=== PATIENT | female | born 1935 | race Caucasian/White ===

== ENCOUNTER 2016-09-19 07:52 | Emergency (ER) | payer MEDICARE, OTHER ==
[2016-09-19] MEDS ORDERED: Acetaminophen/HYDROcodone 325-5 MG Tab PO ONE (08:27)
--- NOTE | 2016-09-19 09:19 | EDM.PDOC ---
ED HPI LOWER BACK PAIN/INJURY - General Chief Complaint: Back Pain or Injury Stated Complaint: BACK PAIN Time Seen by Provider: 09/19/16 08:20 Source of Information: Reports: Patient, RN notes reviewed - History of Present Illness INITIAL COMMENTS - FREE TEXT/NARRATIVE: 81-year-old lady comes in with low back pain. She fell about 5 days ago falling backwards landing on her "butt" she does have moderate discomfort since the fall but no yesterday and especially this morning the pain has been much more severe primarily in the low back. The pain is worse with motion. It does not radiate down either leg. no chest or abdominal pain. No voiding symptoms. No fever or chills - Related Data Allergies/ADRs: Allergies Allergy/AdvReac Type Severity Reaction Status Date / Time bandaids Allergy Rash Uncoded 09/19/16 08:18 metal Allergy Rash Uncoded 09/19/16 08:18 Home Meds: Home Meds Allopurinol [Zyloprim] 100 mg PO DAILY 08/15/13 [History] Amitriptyline [Elavil] 10 mg PO DAILY 08/15/13 [History] Aspirin [Halfprin] 81 mg PO DAILY 08/15/13 [History] Cholecalciferol (Vitamin D3) [Vitamin D3] 1,000 unit PO DAILY 08/15/13 [History] Fish Oil/[place]-3 Fatty Acids [Fish Oil 1,000 MG] 1,000 mg PO DAILY 08/15/13 [ History] Furosemide 80 mg PO SUMOWEFR 08/15/13 [History] Multivitamin [Multivitamins] 1 cap PO DAILY 08/15/13 [History] Niacin 250 mg PO DAILY 08/15/13 [History] Nitroglycerin [Nitrostat] 0.4 mg SL ASDIRECTED PRN 08/15/13 [History] Pravastatin [Pravachol] 40 mg PO DAILY 08/15/13 [History] Atenolol 50 mg PO BID 11/05/14 [History] Gabapentin [Neurontin] 400 mg PO BID 11/05/14 [History] Glimepiride [Amaryl] 8 mg PO DAILY 11/05/14 [History] Quinapril [Accupril] 40 mg PO BID 07/02/15 [History] Acetaminophen [Tylenol Extra Strength] 650 mg PO DAILY PRN 09/02/16 [History] DULoxetine [Cymbalta] 30 mg PO DAILY 09/02/16 [History] Diltiazem HCl [Cardizem] 240 mg PO DAILY 09/02/16 [History] Warfarin Sodium [Coumadin] 3 mg PO 09/02/16 [History] hydrALAZINE [Apresoline] 50 mg PO BID 09/02/16 [History] Hydrocodone/Acetaminophen [[place] 5-325 Tablet] 1 each PO Q8HR PRN #20 tablet 10/31 [Rx] Past Medical History HEENT History: Reports: Cataract, Impaired vision Cardiovascular History: Reports: CAD, Heart Failure, High cholesterol, Hypertension, [place], Stents Respiratory History: Reports: PE Gastrointestinal History: Reports: GERD Genitourinary History: Reports: Chronic renal insuffiency Other Genitourinary History: cystoscopy, fistula placed, boderline renal failure. [employer] History: Reports: Other OB/BYN History: uterine cancer Musculoskeletal History: Reports: Arthritis, Back pain, chronic, Gout, Other ( see below) Other Musculoskeletal History: sciatic nerve Psychiatric History: Reports: Anxiety, Depression Endocrine/Metabolic History: Reports: Diabetes, type II Hematologic History: Reports: Anemia Oncologic (Cancer) History: Reports: Uterine - Past Surgical History HEENT Surgical History: Reports: Cataract surgery Cardiovascular Surgical History: Reports: Coronary artery stent GI Surgical History: Reports: Cholecystectomy, Colonoscopy Female Surgical History: Reports: Hysterectomy, Salpingo-oophorectomy Social & Family History - Family History Cardiac: Reports: [place] - Tobacco Use Smoking Status *Q: Current Every Day Smoker Years of Tobacco use: 10 Packs/Tins Daily: 0.5 Month Tobacco Last Used: 30 years Second Hand Smoke Exposure: No - Caffeine Use Caffeine Use: Reports: Coffee Other Caffeine Use: seldom - Recreational Drug Use Recreational Drug Use: No - Living Situation & Occupation Living situation: Reports: , with spouse Occupation: retired ED ROS GENERAL - Review of Systems Review Of Systems: See Below Constitutional: Denies: fever, chills, diaphoresis HEENT: Reports: No symptoms Respiratory: Denies: Shortness of Breath Cardiovascular: Denies: Chest pain GI/Abdominal: Denies: Abdominal pain, Nausea, Vomiting : Reports: no symptoms Musculoskeletal: Reports: back pain (Low back, worse with motion). Denies: leg pain Skin: Reports: no symptoms Neurological: Denies: Numbness, Tingling ED EXAM,LOWER BACK PAIN/INJURY - Physical Exam Exam: See Below General Appearance: alert, mild distress Eye Exam: bilateral eye: PERRL Throat/Mouth: Normal inspection, Normal oropharynx Head: atraumatic Neck: supple, full range of motion Respiratory/Chest: no respiratory distress, lungs clear, normal breath sounds Cardiovascular: tachycardia GI/Abdominal: soft, non tender Back Exam: paraspinal tenderness (I. lateral low back), vertebral tenderness ( Lower mid back), other (No visible bruising or swelling) Extremities: normal range of motion. No: leg pain Neurological: alert, no motor/sensory deficits, oriented x 3 Skin Exam: Warm, Dry, Normal color Course - Vital Signs Last Recorded V/S: Last Vital Signs Temp 98.2 F 09/19/16 08:15 Pulse 106 H 09/19/16 09:20 Resp 16 09/19/16 09:20 BP 162/67 H 09/19/16 09:20 Pulse Ox 94 L 09/19/16 09:20 - Orders/Labs/Meds Orders: Active Orders 24 hr Category Date Time Status Lumbar Spine 2 or 3V [CR] Stat Exams 09/19/16 08:28 Taken Sacrum Coccyx Min 2V [CR] Stat Exams 09/19/16 08:28 Taken Meds: Medications Discontinued Medications Generic Name Dose Route Start Last Admin Trade Name Viktoriya PRN Reason Stop Dose Admin Hydrocodone Bitart/Acetaminophen 1 tab 09/19/16 08:27 09/19/16 08:50 [place] 325-5 Mg PO 09/19/16 08:28 1 tab ONETIME ONE Administration - Re-Assessments/Exams Free Text/Narrative Re-Assessment/Exam: 09/19/16 12:58 X-rays of the lumbar spine and sacrum show no fracture of the sacrum. She does have very mild compression deformity anteriorly of L1. Patient is not aware of previous compression fractures of this may be acute but also could be secondary to old injury. We did give her a hydrocodone 5-25 by mouth and that is starting to help her. I have written a note for physical therapy. She has renal dialysis dependent and was due for her dialysis at time of discharge. Discharge instructions as documented Departure - Departure Time of Disposition: 09:14 Disposition: Home, Self-Care 01 Condition: fair Clinical Impression: Compression fracture Fall Qualifiers: Encounter type: initial encounter Qualified Code(s): W19.XXXA - Unspecified fall, initial encounter Low back pain Qualifiers: Chronicity: acute Back pain laterality: bilateral Sciatica presence: without sciatica Qualified Code(s): M54.5 - Low back pain Prescriptions: Hydrocodone/Acetaminophen [[place] 5-325 Tablet] 1 each PO Q8HR PRN #20 tablet PRN Reason: Pain Instructions: Back Pain, Adult, [id number], Fall Prevention in the Home, Spinal Compression Fracture Referrals: Dimas John MD [Primary Care Provider] - Forms: ED Department Discharge Additional Instructions: Rest back, no heavy lifting, alternate ice and heat as needed. Tylenol for mild to moderate discomfort or hydrocodone q. 8 hours if needed for severe pain. Your x-rays do show some mild compression of your L1 vertebrae. That may be from your fall Wednesday or that could be chronic from a previous injury. I do recommend physical therapy for for your low back injury. An order has been provided. I also recommend followup with Dr. Castillo at our [facility] clinic. Call [phone] Wednesday morning for appointment. When you pain does start getting better then try take one half tablet hydrocodone q. 8 hours along with a 500 mg Tylenol or acetaminophen. You will have less side effects with a lower dosage. Be sure to drink plenty of water. Take a stool softener when taking hydrocodone as that will tend to make you more constipated. - My Orders Last 24 Hours: My Active Orders 09/19/16 08:28 Lumbar Spine 2 or 3V [CR] Stat Sacrum Coccyx Min 2V [CR] Stat - Assessment/Plan Last 24 Hours: My Active Orders 09/19/16 08:28 Lumbar Spine 2 or 3V [CR] Stat Sacrum Coccyx Min 2V [CR] Stat
[2016-09-19 09:33] VITALS: BP 162/67
--- NOTE | 2016-09-21 10:33 | CR ---
Lumbar spine: AP, lateral and cone-down lateral views centered to the lumbosacral junction were obtained. Comparison: No previous study. Disc space narrowing noted at L3-L4, L4-L5 and L5-S1. Rudimentary disc seen labeled as S1-S2. Minimal spondylolisthesis at L5-S1 due to degenerative apophyseal changes seen. Scattered endplate osteophytes are seen. Moderate superior compression deformity noted of L2 which is likely acute. Mild scoliosis is seen. Impression: 1. Disc space narrowing labeled as S1-S2 presumably due to transitional segment. 2. Moderate superior compression deformity of L2 which is felt to be acute. 3. Degenerative change, mild scoliosis and vascular calcification. Diagnostic code #3
--- NOTE | 2016-09-21 10:33 | CR ---
Sacrum and coccyx: Three views of the sacrum and coccyx were obtained. Comparison: No previous study. Degenerative sclerosis is noted within the sacroiliac joints. 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 Disc space narrowing is noted within the lower thoracic spine. Bony structures are osteopenic. Vascular calcification is identified. Bony structures show no discrete fracture or other abnormality. Impression: 1. Incidental findings as described above. 2. Nothing acute is definitely appreciated on three-view sacrum and coccyx study. Diagnostic code #2
== END 2016-09-19 09:25 | disposition home or self-care (01) ==
LOC: JD.ED 07:52
DX: S32.019A Unspecified fracture of first lumbar vertebra, initial encounter for closed fracture (principal); I11.0 Hypertensive heart disease with heart failure; I50.9 Heart failure, unspecified; E78.00 Pure hypercholesterolemia, unspecified; K21.9 Gastro-esophageal reflux disease without esophagitis; F41.9 Anxiety disorder, unspecified; I25.10 Atherosclerotic heart disease of native coronary artery without angina pectoris; I25.2 Old myocardial infarction; F32.9 Major depressive disorder, single episode, unspecified; F17.210 Nicotine dependence, cigarettes, uncomplicated; E11.9 Type 2 diabetes mellitus without complications; Z90.710 Acquired absence of both cervix and uterus; Z79.82 Long term (current) use of aspirin; Z79.01 Long term (current) use of anticoagulants; Z79.899 Other long term (current) drug therapy; W19.XXXA Unspecified fall, initial encounter
CPT/HCPCS: 72100; 72220; 99283; A9270

== ENCOUNTER 2016-10-14 15:56 | Emergency (ER) | payer MEDICARE, OTHER ==
[2016-10-14] MEDS ORDERED: Furosemide 40 MG/4 ML VIAL IVPUSH ONE ×2 (16:06→16:54)
[2016-10-14] MEDS ORDERED: Sodium Chloride 0.9% 10 ML Syringe FLUSH PRN (16:06)
[2016-10-14 16:13] VITALS: BP 189/117
--- NOTE | 2016-10-14 16:24 | EDM.PDOC ---
ED HPI GENERAL MEDICAL PROBLEM - General Chief Complaint: Respiratory Problem Stated Complaint: RACING HEART BEAT Time Seen by Provider: 10/14/16 16:00 Source of Information: Reports: Patient, Family, Provider, RN Notes Reviewed - History of Present Illness INITIAL COMMENTS - FREE TEXT/NARRATIVE: 81-year-old female who's been brought in by family for evaluation and treatment of shortness of breath, hypoxemia. She did see her regular medical provider at [facility] early this afternoon for the above symptoms which have been worsening over the past week. She was found to have sats running in the 85-86% range. Chest x-ray showed evidence for congestive heart failure, pulmonary edema. She does have history of coronary artery disease, multiple stents, diabetes and also history of renal failure on dialysis. She did have her last dialysis run yesterday with her next scheduled for sometime tomorrow. She feels more short of breath lying flat or trying to move. She does not use home oxygen. - Related Data Allergies Allergy/AdvReac Type Severity Reaction Status Date / Time bandaids Allergy Rash Uncoded 10/14/16 16:13 metal Allergy Rash Uncoded 10/14/16 16:13 Home Meds: Home Meds Allopurinol [Zyloprim] 100 mg PO DAILY 08/15/13 [History] Aspirin [Halfprin] 81 mg PO DAILY 08/15/13 [History] Furosemide 80 mg PO SUMOWEFR 08/15/13 [History] Multivitamin [Multivitamins] 1 cap PO DAILY 08/15/13 [History] Nitroglycerin [Nitrostat] 0.4 mg SL ASDIRECTED PRN 08/15/13 [History] Gabapentin [Neurontin] 400 mg PO BID 11/05/14 [History] Quinapril [Accupril] 40 mg PO DAILY 07/02/15 [History] Acetaminophen [Tylenol Extra Strength] 325 mg PO QID PRN 09/02/16 [History] DULoxetine [Cymbalta] 30 mg PO DAILY 09/02/16 [History] Diltiazem HCl [Cardizem] 120 mg PO DAILY 09/02/16 [History] Clopidogrel [Plavix] 75 mg PO DAILY 10/14/16 [History] Gabapentin [Neurontin] 400 mg PO BID 10/14/16 [History] Insulin Detemir [Levemir] 17 units SUBCUT BEDTIME 10/14/16 [History] Melatonin 3 mg PO DAILY 10/14/16 [History] Omeprazole 20 mg PO DAILY 10/14/16 [History] atorvaSTATin [Lipitor] 10 mg PO DAILY 10/14/16 [History] Past Medical History HEENT History: Reports: Cataract, Impaired Vision Cardiovascular History: Reports: CAD, Heart Failure, High Cholesterol, Hypertension, [place], Stents Respiratory History: Reports: PE Gastrointestinal History: Reports: GERD Genitourinary History: Reports: Chronic Renal Insuffiency Other Genitourinary History: cystoscopy, fistula placed, boderline renal failure. [employer] History: Reports: Other OB/BYN History: uterine cancer Musculoskeletal History: Reports: Arthritis, Back Pain, Chronic, Gout, Other ( See Below) Other Musculoskeletal History: sciatic nerve Psychiatric History: Reports: Anxiety, Depression Endocrine/Metabolic History: Reports: Diabetes, Type II Hematologic History: Reports: Anemia Oncologic (Cancer) History: Reports: Uterine - Past Surgical History HEENT Surgical History: Reports: Cataract Surgery Cardiovascular Surgical History: Reports: Coronary Artery Stent GI Surgical History: Reports: Cholecystectomy, Colonoscopy Female Surgical History: Reports: Hysterectomy, Salpingo-Oophorectomy Oncologic Surgical History: Reports: Other (See Below) Social & Family History - Family History Cardiac: Reports: [place] - Tobacco Use Smoking Status *Q: Former Smoker Years of Tobacco use: 10 Packs/Tins Daily: 0.5 Used Tobacco, but Quit: Yes Month Tobacco Last Used: 30 years Second Hand Smoke Exposure: No - Caffeine Use Caffeine Use: Reports: None Other Caffeine Use: seldom - Recreational Drug Use Recreational Drug Use: No - Living Situation & Occupation Living situation: Reports: , with Spouse Occupation: Retired ED ROS GENERAL - Review of Systems Review Of Systems: See Below Constitutional: Denies: Fever, Chills, Diaphoresis HEENT: Reports: No Symptoms Respiratory: Reports: Shortness of Breath, Cough. Denies: Pleuritic Chest Pain , Sputum Cardiovascular: Reports: Palpitations. Denies: Chest Pain GI/Abdominal: Denies: Abdominal Pain, Nausea, Vomiting Musculoskeletal: Denies: Shoulder Pain, Arm Pain, Leg Pain Skin: Reports: No Symptoms Neurological: Reports: Dizziness, Weakness ED EXAM, GENERAL - Physical Exam Exam: See Below General Appearance: Alert Eye Exam: Bilateral Eye: PERRL Throat/Mouth: Normal Inspection, Normal Oropharynx Head: Atraumatic Neck: Supple, Other (No JVD) Respiratory/Chest: No Respiratory Distress, Lungs Clear, Rales (Mild rales bilateral bases) Cardiovascular: Tachycardia GI/Abdominal: Soft, Non-Tender. No: Guarding Extremities: Normal Inspection, Pedal Edema (Very mild bilateral). No: Leg Pain Neurological: Alert, Oriented, No Motor/Sensory Deficits Skin Exam: Warm, Dry, Normal Color Course - Vital Signs Last Recorded V/S: Last Vital Signs Temp 97.4 F 10/14/16 16:04 Pulse 104 H 10/14/16 16:04 Resp 19 10/14/16 16:04 BP 189/117 H 10/14/16 16:04 Pulse Ox 96 10/14/16 16:04 - Orders/Labs/Meds Orders: Active Orders 24 hr Category Date Time Status Peripheral IV Care [RC] . DIRECTED Care 10/14/16 16:06 Active Sodium Chloride 0.9% [Saline Flush] Med 10/14/16 16:06 Active 10 ml FLUSH ASDIRECTED PRN Peripheral IV Insertion Adult [OM.PC] Stat Oth 10/14/16 16:06 Ordered Medication Orders Sodium Chloride (Saline Flush) 10 ml FLUSH ASDIRECTED PRN PRN Reason: Keep Vein Open Last Admin: 10/14/16 16:21 Dose: 10 ml Meds: Medications Generic Name Dose Route Start Last Admin Trade Name Freq PRN Reason Stop Dose Admin Sodium Chloride 10 ml 10/14/16 16:06 10/14/16 16:21 Saline Flush FLUSH 10 ml ASDIRECTED PRN Administration Keep Vein Open Discontinued Medications Generic Name Dose Route Start Last Admin Trade Name Freq PRN Reason Stop Dose Admin Furosemide 40 mg 10/14/16 16:06 10/14/16 16:21 Lasix IVPUSH 10/14/16 16:07 40 mg NOW ONE Administration Furosemide 40 mg 10/14/16 16:54 10/14/16 17:13 Lasix IVPUSH 10/14/16 16:55 40 mg NOW ONE Administration - Re-Assessments/Exams Free Text/Narrative Re-Assessment/Exam: 10/14/16 16:26 Labs and EKG are reviewed from what was done at [facility] a very short time ago, Dr. Caraballo of her head cold over, suggested the give a dose of IV furosemide and see how she responds to that. I do not have a chest x-ray pushed over from [place] yet, we are working to see if that can be done. If her sats did not come up fairly quickly with IV furosemide will then need to strongly consider transfer to [facility] where she can be admitted and have her needed dialysis tomorrow. 10/14/16 17:15. Chest x-ray has been pushed over from [facility], it does show cardiomegaly, some pulmonary congestion, does not severe pulmonary edema, small right pleural effusion 10/14/16 18:30. We have tried turning her oxygen off twice and both times her sats have fallen down into the low to mid 80s. That is sitting at rest with head and chest elevated. She's not going to be able to go home. With her being a dialysis patient we are not able to admit her. I did double check with Dr. Beckwith our hospitalist as far as the possibility for observation but because of the limited time and no guarantee that she would then be stable for discharge we are not able to do that at this time. I have visited with Dr. Fernandez, hospitalist national account executive for [facility] where she has had her recent hospital admissions. She will be transferred by ground ambulance. She continues to have no chest pain. With O2 sats are continuing to run in the 94-95% range. Departure - Departure Time of Disposition: 19:00 Disposition: DC/Tfer to Acute Hospital 02 Condition: fair Clinical Impression: Hypoxia Congestive heart failure Qualifiers: Congestive heart failure type: unspecified congestive heart failure type Congestive heart failure chronicity: acute on chronic Qualified Code(s): I50.9 - Heart failure, unspecified Renal failure Qualifiers: Renal failure chronicity: chronic Chronic kidney disease stage: on chronic dialysis Qualified Code(s): N18.6 - End stage renal disease; Z99.2 - Dependence on renal dialysis - Discharge Information Forms: ED Department Discharge - My Orders Last 24 Hours: My Active Orders 10/14/16 16:06 Peripheral IV Care [RC] . DIRECTED Sodium Chloride 0.9% [Saline Flush] 10 ml FLUSH ASDIRECTED PRN Peripheral IV Insertion Adult [OM.PC] Stat - Assessment/Plan Last 24 Hours: My Active Orders 10/14/16 16:06 Peripheral IV Care [RC] . DIRECTED Sodium Chloride 0.9% [Saline Flush] 10 ml FLUSH ASDIRECTED PRN Peripheral IV Insertion Adult [OM.PC] Stat
== END 2016-10-14 19:40 ==
LOC: JD.ED 15:56
DX: R09.02 Hypoxemia (principal); I13.2 Hypertensive heart and chronic kidney disease with heart failure and with stage 5 chronic kidney disease, or end stage renal disease; E11.22 Type 2 diabetes mellitus with diabetic chronic kidney disease; N18.6 End stage renal disease; I50.9 Heart failure, unspecified; Z99.2 Dependence on renal dialysis; I25.2 Old myocardial infarction; I25.10 Atherosclerotic heart disease of native coronary artery without angina pectoris; E78.00 Pure hypercholesterolemia, unspecified; K21.9 Gastro-esophageal reflux disease without esophagitis; M19.90 Unspecified osteoarthritis, unspecified site; F41.8 Other specified anxiety disorders; D64.9 Anemia, unspecified; Z98.49 Cataract extraction status, unspecified eye; Z95.5 Presence of coronary angioplasty implant and graft; Z85.42 Personal history of malignant neoplasm of other parts of uterus; Z79.4 Long term (current) use of insulin; Z79.899 Other long term (current) drug therapy; Z79.82 Long term (current) use of aspirin; Z87.891 Personal history of nicotine dependence
CPT/HCPCS: 96374; 96376; 99285; J1940; J7050; 99284

== ENCOUNTER 2016-12-26 12:00 | Emergency (ER) | payer MEDICARE, OTHER ==
[2016-12-26 12:13] VITALS: BP 107/35
[2016-12-26] MEDS ORDERED: Sodium Chloride 0.9% 10 ML Syringe FLUSH PRN (12:30)
[2016-12-26] MEDS ORDERED: Diatrizoate Meglumine/Diatrizoate Sodium 37% 120 ML Bottle PO ONE (14:11)
--- NOTE | 2016-12-26 14:33 | EDM.PDOC ---
ED HPI GENERAL MEDICAL PROBLEM - General Chief Complaint: Abdominal Pain Stated Complaint: ABDOMINAL PAIN Time Seen by Provider: 12/26/16 12:08 Source of Information: Reports: Patient History Limitations: Reports: No Limitations - History of Present Illness INITIAL COMMENTS - FREE TEXT/NARRATIVE: The patient presents with abdominal pain and nausea. This started 3 days ago. It comes and goes. She did not vomit and she has no diarrhea or dysuria. She has no fever, chills, cough, chest pain or shortness of breath. She is in renal failure and she is on dialysis 3 times per week. She went to dialysis today and came here from there. She still has her appendix but she does not have a gallbladder. She still can eat and drink and that does not affect the pain. Onset: Gradual Duration: Day(s): (3) Location: Reports: Abdomen Quality: Reports: Ache Severity: Moderate Improves with: Reports: None Worsens with: Reports: None Context: Reports: Activity Associated Symptoms: Reports: Nausea/Vomiting. Denies: Cough, Fever/Chills Abdomen Pain Score (Numeric/FACES): 5 - Related Data Allergies Allergy/AdvReac Type Severity Reaction Status Date / Time bandaids Allergy Rash Uncoded 10/14/16 16:13 metal Allergy Rash Uncoded 10/14/16 16:13 Home Meds: Home Meds Allopurinol [Zyloprim] 100 mg PO DAILY 08/15/13 [History] Aspirin [Halfprin] 81 mg PO DAILY 08/15/13 [History] Furosemide 80 mg PO SUMOWEFR 08/15/13 [History] Multivitamin [Multivitamins] 1 cap PO DAILY 08/15/13 [History] Nitroglycerin [Nitrostat] 0.4 mg SL ASDIRECTED PRN 08/15/13 [History] Acetaminophen [Tylenol Extra Strength] 325 mg PO QID PRN 09/02/16 [History] DULoxetine [Cymbalta] 30 mg PO DAILY 09/02/16 [History] Diltiazem HCl [Cardizem] 120 mg PO DAILY 09/02/16 [History] Clopidogrel [Plavix] 75 mg PO DAILY 10/14/16 [History] Gabapentin [Neurontin] 400 mg PO BID 10/14/16 [History] Insulin Detemir [Levemir] 10 units SUBCUT BEDTIME 10/14/16 [History] Melatonin 3 mg PO DAILY 10/14/16 [History] Omeprazole 20 mg PO DAILY 10/14/16 [History] atorvaSTATin [Lipitor] 10 mg PO DAILY 10/14/16 [History] Ciprofloxacin HCl [Cipro] 500 mg PO BID #20 tablet 12/26/16 [Rx] Hydrocodone/Acetaminophen [Hydrocodon-Acetaminophen 5-325] 1 - 2 each PO Q6HR PRN #20 tablet 12/26/16 [Rx] Ondansetron [Zofran ODT] 4 mg PO Q6H PRN #20 tab.dis 12/26/16 [Rx] metroNIDAZOLE [Flagyl] 500 mg PO Q8H #30 tablet 12/26/16 [Rx] Past Medical History HEENT History: Reports: Cataract, Impaired Vision Cardiovascular History: Reports: CAD, Heart Failure, High Cholesterol, Hypertension, [place], Stents Respiratory History: Reports: PE Gastrointestinal History: Reports: GERD Genitourinary History: Reports: Chronic Renal Insuffiency Other Genitourinary History: cystoscopy, fistula placed, boderline renal failure. [employer] History: Reports: Other OB/BYN History: uterine cancer Musculoskeletal History: Reports: Arthritis, Back Pain, Chronic, Gout, Other ( See Below) Other Musculoskeletal History: sciatic nerve Psychiatric History: Reports: Anxiety, Depression Endocrine/Metabolic History: Reports: Diabetes, Type II Hematologic History: Reports: Anemia Other Hematologic History: hyperkalemia, hyperphosphatemia, vitamin d deficiency Oncologic (Cancer) History: Reports: Uterine Dermatologic History: Reports: Other (See Below) Other Dermatologic History: neoplasm of skin - Past Surgical History HEENT Surgical History: Reports: Cataract Surgery Cardiovascular Surgical History: Reports: Coronary Artery Stent GI Surgical History: Reports: Cholecystectomy, Colonoscopy Female Surgical History: Reports: Hysterectomy, Salpingo-Oophorectomy Oncologic Surgical History: Reports: Other (See Below) Social & Family History - Family History Cardiac: Reports: OK - Tobacco Use Smoking Status *Q: Former Smoker Years of Tobacco use: 10 Packs/Tins Daily: 0.5 Used Tobacco, but Quit: Yes Month Tobacco Last Used: 30 years Second Hand Smoke Exposure: No - Caffeine Use Caffeine Use: Reports: None Other Caffeine Use: seldom - Recreational Drug Use Recreational Drug Use: No - Living Situation & Occupation Living situation: Reports: , with Spouse Occupation: Retired [employer] - Review of Systems Review Of Systems: See Below Constitutional: Reports: No Symptoms HEENT: Reports: No Symptoms Respiratory: Reports: No Symptoms Cardiovascular: Reports: No Symptoms Endocrine: Reports: No Symptoms GI/Abdominal: Reports: Abdominal Pain, Nausea. Denies: Diarrhea : Reports: No Symptoms Musculoskeletal: Reports: No Symptoms ED EXAM, GI/ABD - Physical Exam Exam: See Below Exam Limited By: No Limitations General Appearance: Alert, No Apparent Distress Ears: Normal External Exam Nose: Normal Inspection Head: Atraumatic, Normocephalic Neck: Normal Inspection Respiratory/Chest: No Respiratory Distress, Lungs Clear, Normal Breath Sounds Cardiovascular: Regular Rate, Rhythm, No Edema, No Murmur GI/Abdominal Exam: Soft, No Organomegaly, No Mass, Tender (Mild generalized tenderness) Course - Vital Signs Last Recorded V/S: Last Vital Signs Temp 96.9 F 12/26/16 12:11 Pulse 76 12/26/16 12:11 Resp 16 12/26/16 16:00 BP 107/35 L 12/26/16 12:11 Pulse Ox 98 12/26/16 16:00 - Orders/Labs/Meds Orders: Active Orders 24 hr Category Date Time Status Peripheral IV Care [RC] . DIRECTED Care 12/26/16 12:30 Active Abdomen Pelvis wo Cont [CT] Stat Exams 12/26/16 12:30 Taken Peripheral IV Insertion Adult [OM.PC] Stat Oth 12/26/16 12:30 Ordered Labs: Laboratory Tests 12/26/16 12/26/16 Range/Units 12:55 12:55 WBC 9.64 (3.98-10.04) K/mm3 RBC 3.57 L (3.98-5.22) M/mm3 Hgb 11.0 L (11.2-15.7) gm/L Hct 34.5 (34.1-44.9) % MCV 96.6 H (79.4-94.8) fl MCH 30.8 (25.6-32.2) pg MCHC 31.9 L (32.2-35.5) g/dl RDW Std Deviation 50.3 H (36.4-46.3) fL Plt Count 231 (182-369) K/mm3 MPV 9.4 (9.4-12.3) fl Neut % (Auto) 80.7 H (34.0-71.1) % Lymph % (Auto) 12.3 L (19.3-51.7) % [place] % (Auto) 5.1 (4.7-12.5) % Eos % (Auto) 1.5 (0.7-5.8) Baso % (Auto) 0.2 (0.1-1.2) % Neut # (Auto) 7.78 H (1.56-6.13) K/mm3 Lymph # (Auto) 1.19 (1.18-3.74) K/mm3 [place] # (Auto) 0.49 H (0.24-0.36) K/mm3 Eos # (Auto) 0.14 (0.04-0.36) K/mm3 Baso # (Auto) 0.02 (0.01-0.08) K/mm3 Sodium 137 (136-145) mEq/L Potassium 4.6 (3.5-5.1) mEq/L Chloride 96 L (98-107) mEq/L Carbon Dioxide 34 H (21-32) mEq/L Anion Gap 11.6 (5-15) BUN 25 H (7-18) mg/dL Creatinine 2.9 H (0.55-1.02) mg/dL Est Cr Clr Drug Dosing 12.44 mL/min Estimated GFR (MDRD) 16 (>60) mL/min BUN/Creatinine Ratio 8.6 L (14-18) Glucose 152 H (83-115) mg/dL Calcium 9.7 (8.5-10.1) mg/dL Total Bilirubin 0.3 (0.2-1.0) mg/dL AST 17 (15-37) U/L ALT 19 (14-59) U/L Alkaline Phosphatase 143 H (46-116) U/L Total Protein 8.1 (6.4-8.2) g/dl Albumin 3.6 (3.4-5.0) g/dl Globulin 4.5 gm/dL Albumin/Globulin Ratio 0.8 L (1-2) Lipase 405 H (73-393) U/L Meds: Medications Discontinued Medications Generic Name Dose Route Start Last Admin Trade Name Freq PRN Reason Stop Dose Admin Diatrizoate Meglum/Diatrizoate Sod 90 ml 12/26/16 14:11 12/26/16 14:14 Gastrografin 37% PO 12/26/16 14:12 90 ml ONETIME ONE Administration Sodium Chloride 10 ml 12/26/16 12:30 12/26/16 12:44 Saline Flush FLUSH 10 ml ASDIRECTED PRN Administration Keep Vein Open - Re-Assessments/Exams Free Text/Narrative Re-Assessment/Exam: 12/26/16 17:06 I ordered an IV saline lock, labs, and a CT of her abdomen and pelvis. 12/26/16 17:07 Her WBC was normal. Her Hgb was 11. Her platelets are normal. Her creatinine was elevated at 2.9. Her glucose was elevated at 152. Her Alk Phos was elevated at 143. Her lipase was elevated at 405. The CT of her abdomen and pelvis shows right sided colitis presumed typhtis. L1 compression fracture, uncertain chronicity. I called Dr Liu our general surgeon verification lead and this is not a patient who needs surgery but she does need to be admitted and given IV antibiotics. The patient is on dialysis and she would need to be admitted in [place] per out dialysis patient policy. I talked with the patient and she did not want to be admitted but she would take some antibiotics at home. I will try that and have her return if she is worse. I put her on cipro and flagyl. Departure - Departure Time of Disposition: 15:45 Disposition: Home, Self-Care 01 Condition: Good Clinical Impression: Colitis, Typhlitis Pancreatitis Qualifiers: Chronicity: acute Pancreatitis type: other Acute pancreatitis complication: no infection or necrosis Qualified Code(s): K85.80 - Other acute pancreatitis without necrosis or infection - Discharge Information Prescriptions: Hydrocodone/Acetaminophen [Hydrocodon-Acetaminophen 5-325] 1 - 2 each PO Q6HR PRN #20 tablet PRN Reason: Pain Ciprofloxacin HCl [Cipro] 500 mg PO BID #20 tablet Ondansetron [Zofran ODT] 4 mg PO Q6H PRN #20 tab.dis PRN Reason: Nausea/Vomiting metroNIDAZOLE [Flagyl] 500 mg PO Q8H #30 tablet Instructions: Flank Pain, [id number], Colitis Referrals: Dimas John MD [Primary Care Provider] - 3 Days Forms: ED Department Discharge Additional Instructions: Take your other medications as prescribed. Take the cipro 2 times per day for 10 days. Take the flagyl 3 times per day for 10 days. Take the zofran every 6 hours as needed for nausea and vomiting. Take the hydrocodone as needed for pain. Please return if you are worse. Follow up with Dr John in 3 days. - My Orders Last 24 Hours: My Active Orders 12/26/16 12:30 Peripheral IV Care [RC] . DIRECTED Abdomen Pelvis wo Cont [CT] Stat Peripheral IV Insertion Adult [OM.PC] Stat - Assessment/Plan Last 24 Hours: My Active Orders 12/26/16 12:30 Peripheral IV Care [RC] . DIRECTED Abdomen Pelvis wo Cont [CT] Stat Peripheral IV Insertion Adult [OM.PC] Stat
--- NOTE | 2016-12-27 19:52 | CT ---
CT abdomen and pelvis Technique: Multiple axial sections were obtained from above the dome of diaphragm inferiorly through the pubic symphysis. Intravenous contrast was not utilized. Oral contrast has been given. Comparison: Previous abdominal and pelvic CT exam of 05/29/14. Findings: Bowel wall thickening noted within the cecum. This is an interval change from previous CT exam. Terminal ileum appears normal. Appendix is not visualized. Minimal inflammatory change is seen around the cecum. No additional bowel wall thickening is appreciated. Visualized lung bases show nothing acute. Coronary artery calcification is seen. Heart is enlarged. Cyst is identified within the right lobe of the liver measuring approximately 2.0 cm in size. This measured approximately 1.7 cm in size in similar measurement planes on prior CT exam. No additional abnormality identified within the liver. Surgical clips are noted from prior cholecystectomy. Spleen appears within normal limits. Adrenal glands show no nodule. Pancreas is within normal limits. Small hyperdense lesion noted within the right kidney which is cortical in location and measures about 7 mm. Similar finding showing low density noted on prior CT exam measuring 7 mm. This is most likely due to a small hemorrhagic cyst. Kidneys show no hydronephrosis or abnormal calcifications. Aorta and iliac vessels show atherosclerotic change without aneurysmal dilatation. No retroperitoneal adenopathy or mesenteric abnormalities are seen. No pelvic mass or adenopathy is seen. No free fluid is seen. Bone window settings were reviewed which show a compression deformity of L1. This finding is identified on prior MRI study of 09/29/16 at which time it appeared fairly acute. Mild endplate concavity is seen of T11 which on prior MRI also appeared to be fairly acute. Degenerative disc space narrowing and vacuum phenomena are seen within the lumbar spine. Impression: 1. Bowel wall thickening within the cecum compatible with typhlitis. 2. Other incidental findings as noted above. Diagnostic code #3 I agree with preliminary report issued by [facility] ([facility] report finalized on 12/26/16, 3:53 PM Central Time)
== END 2016-12-26 16:00 | disposition home or self-care (01) ==
LOC: JD.ED 12:00
DX: K52.9 Noninfective gastroenteritis and colitis, unspecified (principal); K85.80 Other acute pancreatitis without necrosis or infection; K37 Unspecified appendicitis; I25.10 Atherosclerotic heart disease of native coronary artery without angina pectoris; I25.2 Old myocardial infarction; I13.0 Hypertensive heart and chronic kidney disease with heart failure and stage 1 through stage 4 chronic kidney disease, or unspecified chronic kidney disease; I50.9 Heart failure, unspecified; E11.22 Type 2 diabetes mellitus with diabetic chronic kidney disease; N18.9 Chronic kidney disease, unspecified; E78.00 Pure hypercholesterolemia, unspecified; K21.9 Gastro-esophageal reflux disease without esophagitis; M19.90 Unspecified osteoarthritis, unspecified site; F41.9 Anxiety disorder, unspecified; F32.9 Major depressive disorder, single episode, unspecified; Z91.048 Other nonmedicinal substance allergy status; Z86.711 Personal history of pulmonary embolism; Z79.82 Long term (current) use of aspirin; Z79.02 Long term (current) use of antithrombotics/antiplatelets; Z79.4 Long term (current) use of insulin; Z79.899 Other long term (current) drug therapy; Z85.42 Personal history of malignant neoplasm of other parts of uterus; Z98.49 Cataract extraction status, unspecified eye; Z95.5 Presence of coronary angioplasty implant and graft; Z90.710 Acquired absence of both cervix and uterus; Z90.49 Acquired absence of other specified parts of digestive tract; Z90.721 Acquired absence of ovaries, unilateral; Z87.891 Personal history of nicotine dependence
CPT/HCPCS: 36415; 74176; 80053; 83690; 85025; 99284; J7050; Q9963

== ENCOUNTER 2017-02-06 23:08 | Emergency (ER) | payer MEDICARE, OTHER ==
[2017-02-06 23:22] VITALS: BP 152/55
[2017-02-06] MEDS ORDERED: Ondansetron 4 MG/2 ML SDV IVPUSH ONE (23:32)
[2017-02-06] MEDS ORDERED: Meclizine 12.5 MG Tab PO ONE (23:35)
--- NOTE | 2017-02-06 23:39 | EDM.PDOC ---
ED HPI GENERAL MEDICAL PROBLEM - General Chief Complaint: Gastrointestinal Problem Stated Complaint: [facility] Time Seen by Provider: 02/06/17 23:15 Source of Information: Reports: Patient History Limitations: Reports: No Limitations - History of Present Illness INITIAL COMMENTS - FREE TEXT/NARRATIVE: This is a 81-year-old female. She was at dialysis today for her normal 4 hour visit when they noted that her blood pressure was lower than normal and she was dizzy and weak when she would stand up so they kept her another couple of hours neck she put back some fluids into her system. She was still somewhat weak and a little bit dizzy when she went home. This evening after eating a sandwich she started to vomit and she vomited about 10 times and also had 4 episodes of diarrhea. During that time she was having a lot of stomach cramping and she felt somewhat weak and wobbly and the patient tells me that the room spins. She is noted to have orthostatic vital signs upon arrival to the ER. She was somewhat weak and required some assistance in standing up to get the orthostatic vital signs. Abdomen Pain Score (Numeric/FACES): 3 - Related Data Allergies Allergy/AdvReac Type Severity Reaction Status Date / Time bandaids Allergy Rash Uncoded 10/14/16 16:13 metal Allergy Rash Uncoded 10/14/16 16:13 Home Meds: Home Meds Allopurinol [Zyloprim] 100 mg PO DAILY 08/15/13 [History] Aspirin [Halfprin] 81 mg PO DAILY 08/15/13 [History] Multivitamin [Multivitamins] 1 cap PO DAILY 08/15/13 [History] DULoxetine [Cymbalta] 30 mg PO DAILY 09/02/16 [History] Diltiazem HCl [Cardizem] 120 mg PO DAILY 09/02/16 [History] Clopidogrel [Plavix] 75 mg PO DAILY 10/14/16 [History] Gabapentin [Neurontin] 400 mg PO BID 10/14/16 [History] Omeprazole 10 mg PO DAILY 10/14/16 [History] atorvaSTATin [Lipitor] 10 mg PO DAILY 10/14/16 [History] Amitriptyline [Elavil] 10 mg PO DAILY 02/06/17 [History] Diazepam [Valium] 5 mg PO DAILY 02/06/17 [History] Metoprolol Tartrate 12.5 mg PO BID 02/06/17 [History] Quinapril [Accupril] 0 dose PO ASDIRECTED 02/06/17 [History] Vit A/Vit C/Vit E/Zinc/Copper [Preservision] 1 tab PO BID 02/06/17 [History] Ondansetron [Zofran ODT] 4 mg PO Q6H PRN #12 tab.dis 02/07/17 [Rx] Past Medical History HEENT History: Reports: Cataract, Impaired Vision Cardiovascular History: Reports: CAD, Heart Failure, High Cholesterol, Hypertension, [place], Stents Respiratory History: Reports: PE Gastrointestinal History: Reports: GERD Genitourinary History: Reports: Chronic Renal Insuffiency Other Genitourinary History: cystoscopy, fistula placed, boderline renal failure. [employer]IST History: Reports: Other OB/BYN History: uterine cancer Musculoskeletal History: Reports: Arthritis, Back Pain, Chronic, Gout, Other ( See Below) Other Musculoskeletal History: sciatic nerve Psychiatric History: Reports: Anxiety, Depression Endocrine/Metabolic History: Reports: Diabetes, Type II Hematologic History: Reports: Anemia Other Hematologic History: hyperkalemia, hyperphosphatemia, vitamin d deficiency Oncologic (Cancer) History: Reports: Uterine Dermatologic History: Reports: Other (See Below) Other Dermatologic History: neoplasm of skin - Past Surgical History HEENT Surgical History: Reports: Cataract Surgery Cardiovascular Surgical History: Reports: Coronary Artery Stent GI Surgical History: Reports: Cholecystectomy, Colonoscopy Female Surgical History: Reports: Hysterectomy, Salpingo-Oophorectomy Oncologic Surgical History: Reports: Other (See Below) Social & Family History - Family History Cardiac: Reports: [place] - Tobacco Use Smoking Status *Q: Former Smoker Years of Tobacco use: 10 Packs/Tins Daily: 0.5 Used Tobacco, but Quit: Yes Month Tobacco Last Used: 50 Second Hand Smoke Exposure: No - Caffeine Use Caffeine Use: Reports: None Other Caffeine Use: fluid restriction 1 liter daily - Recreational Drug Use Recreational Drug Use: No - Living Situation & Occupation Living situation: Reports: , with Spouse 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 Denies: Fever, Chills HEENT: Reports: No Symptoms Respiratory: Reports: No Symptoms Cardiovascular: Reports: No Symptoms Endocrine: Reports: No Symptoms GI/Abdominal: Reports: Abdominal Pain, Diarrhea, Nausea, Vomiting : Reports: Other (Despite dialysis she does make a small amount of urine) Musculoskeletal: Reports: Other (Feels weak all over) Skin: Reports: No Symptoms Neurological: Reports: Dizziness Psychiatric: Reports: No Symptoms Hematologic/Lymphatic: Reports: No Symptoms ED EXAM, GI/ABD - Physical Exam Exam: See Below Exam Limited By: No Limitations General Appearance: Alert, WD/WN, No Apparent Distress Eyes: Bilateral: Normal Appearance Ears: Normal External Exam Nose: Normal Inspection Throat/Mouth: Normal Inspection, Normal Lips, Normal Oropharynx, Normal Voice, No Airway Compromise Head: Normocephalic Neck: Supple Respiratory/Chest: No Respiratory Distress, Lungs Clear, Normal Breath Sounds Cardiovascular: Regular Rate, Rhythm, No Murmur, Tachycardia GI/Abdominal Exam: Soft, Non-Tender, Other (Abdomen soft enlarged, she did state she was having a lot of cramping earlier but she is only sore on palpation there is no localized tenderness on palpation of either her upper or lower abdomen) Back Exam: Full Range of Motion Extremities: Normal Inspection, Normal Range of Motion, No Pedal Edema Neurological: Alert, Oriented Psychiatric: Normal Affect, Normal Mood Skin Exam: Warm, Dry Comments: We attempted to get her up to do the orthostatic vital signs she was very wobbly and complained of the room spinning. Required assistance to keep her up on her feet while we did the vital signs. Course - Vital Signs Last Recorded V/S: Last Vital Signs Temp 96.4 F 02/06/17 23:15 Pulse 97 02/06/17 23:15 Resp 24 H 02/06/17 23:15 BP 152/55 H 02/06/17 23:15 Pulse Ox 97 02/06/17 23:15 Orthostatic Blood Pressure [ 108/63 Standing] Orthostatic Blood Pressure [ 131/60 Sitting] Orthostatic Blood Pressure [ 152/55 Supine] - Orders/Labs/Meds Orders: Active Orders 24 hr Category Date Time Status Sodium Chloride 0.9% [Normal Saline] 1,000 ml Med 02/06/17 23:45 Active IV ASDIRECTED Medication Orders Sodium Chloride (Normal Saline) 1,000 mls @ 500 mls/hr IV ASDIRECTED SIN Last Admin: 02/06/17 23:45 Dose: 500 mls/hr Labs: Laboratory Tests 02/06/17 02/06/17 Range/Units 23:35 23:35 WBC 11.30 H (3.98-10.04) K/mm3 RBC 3.61 L (3.98-5.22) M/mm3 Hgb 11.1 L (11.2-15.7) gm/L Hct 36.1 (34.1-44.9) % MCV 100.0 H (79.4-94.8) fl MCH 30.7 (25.6-32.2) pg MCHC 30.7 L (32.2-35.5) g/dl RDW Std Deviation 58.5 H (36.4-46.3) fL Plt Count 238 (182-369) K/mm3 MPV 9.4 (9.4-12.3) fl Neut % (Auto) 86.2 H (34.0-71.1) % Lymph % (Auto) 6.7 L (19.3-51.7) % [place] % (Auto) 5.7 (4.7-12.5) % Eos % (Auto) 0.9 (0.7-5.8) Baso % (Auto) 0.2 (0.1-1.2) % Neut # (Auto) 9.75 H (1.56-6.13) K/mm3 Lymph # (Auto) 0.76 L (1.18-3.74) K/mm3 [place] # (Auto) 0.64 H (0.24-0.36) K/mm3 Eos # (Auto) 0.10 (0.04-0.36) K/mm3 Baso # (Auto) 0.02 (0.01-0.08) K/mm3 Manual Slide Review Abnormal smear Sodium 137 (136-145) mEq/L Potassium 4.0 (3.5-5.1) mEq/L Chloride 96 L (98-107) mEq/L Carbon Dioxide 29 (21-32) mEq/L Anion Gap 16.0 H (5-15) BUN 36 H (7-18) mg/dL Creatinine 3.6 H (0.55-1.02) mg/dL Est Cr Clr Drug Dosing 10.02 mL/min Estimated GFR (MDRD) 12 (>60) mL/min BUN/Creatinine Ratio 10.0 L (14-18) Glucose 218 H (83-115) mg/dL Calcium 9.4 (8.5-10.1) mg/dL Total Bilirubin 0.4 (0.2-1.0) mg/dL AST 25 (15-37) U/L ALT 27 (14-59) U/L Alkaline Phosphatase 151 H (46-116) U/L Total Protein 8.7 H (6.4-8.2) g/dl Albumin 4.0 (3.4-5.0) g/dl Globulin 4.7 gm/dL Albumin/Globulin Ratio 0.9 L (1-2) Meds: Medications Generic Name Dose Route Start Last Admin Trade Name Freq PRN Reason Stop Dose Admin Sodium Chloride 1,000 mls @ 500 mls/hr 02/06/17 23:45 02/06/17 23:45 Normal Saline IV 500 mls/hr ASDIRECTED SIN Administration Discontinued Medications Generic Name Dose Route Start Last Admin Trade Name Freq PRN Reason Stop Dose Admin Meclizine HCl 25 mg 02/06/17 23:35 02/06/17 23:46 Antivert PO 02/06/17 23:36 25 mg ONETIME ONE Administration Ondansetron HCl 4 mg 02/06/17 23:32 02/06/17 23:46 Zofran IVPUSH 02/06/17 23:33 4 mg ONETIME ONE Administration - Re-Assessments/Exams Free Text/Narrative Re-Assessment/Exam: 02/07/17 03:45 I spoke to the family and patient regarding the blood results. I believe that she is dehydrated from dialysis causing her symptoms however she might also have a little viral syndrome causing the nausea and the vomiting and also the diarrhea. I have encouraged her to go home and sleep and rest as much as possible and drink her normal quantity of fluids that she is supposed to well she is on dialysis. The nurse did get her up and walk around she states she feels good but just tired. Departure - Departure Time of Disposition: 03:46 Disposition: Home, Self-Care 01 Condition: Good Clinical Impression: Dehydration symptoms Dialysis complication Qualifiers: Encounter type: initial encounter Qualified Code(s): T82.9XXA - Unspecified complication of cardiac and vascular prosthetic device, implant and graft, initial encounter Nausea & vomiting Qualifiers: Vomiting type: unspecified Vomiting Intractability: non-intractable Qualified Code(s): R11.2 - Nausea with vomiting, unspecified Diarrhea Qualifiers: Diarrhea type: unspecified type Qualified Code(s): R19.7 - Diarrhea, unspecified - Discharge Information Prescriptions: Ondansetron [Zofran ODT] 4 mg PO Q6H PRN #12 tab.dis PRN Reason: Nausea Instructions: Nausea and Vomiting, Adult, [id number], Dehydration, Elderly, [id number], Diarrhea, Adult, [id number] Referrals: Dimas John MD [Primary Care Provider] - Forms: ED Department Discharge Additional Instructions: Home rest and sleep, use the Zofran if needed for nausea, please drink your allotted amount of fluids that you aren't allowed for dialysis, follow up with dialysis on Wednesday as scheduled, if there are problems return to the ER or see your family physician. - My Orders Last 24 Hours: My Active Orders 02/06/17 23:45 Sodium Chloride 0.9% [Normal Saline] 1,000 ml IV ASDIRECTED - Assessment/Plan Last 24 Hours: My Active Orders 02/06/17 23:45 Sodium Chloride 0.9% [Normal Saline] 1,000 ml IV ASDIRECTED
[2017-02-06] MEDS ORDERED: Sodium Chloride 0.9% 1,000 ML IV SCH (23:45)
== END 2017-02-07 04:00 | disposition home or self-care (01) ==
LOC: SUPCPDRO 23:08 → JD.ED 23:08
DX: T82.49XA Other complication of vascular dialysis catheter, initial encounter (principal); E86.0 Dehydration; I13.0 Hypertensive heart and chronic kidney disease with heart failure and stage 1 through stage 4 chronic kidney disease, or unspecified chronic kidney disease; I50.9 Heart failure, unspecified; K21.9 Gastro-esophageal reflux disease without esophagitis; N18.9 Chronic kidney disease, unspecified; Z98.49 Cataract extraction status, unspecified eye; Z79.82 Long term (current) use of aspirin; Z79.899 Other long term (current) drug therapy; Z90.49 Acquired absence of other specified parts of digestive tract; Z87.891 Personal history of nicotine dependence
CPT/HCPCS: 36415; 80053; 85025; 96361; 96374; 99285; A9270; J2405; J7040; 99284

== ENCOUNTER 2017-03-30 07:49 | Emergency (ER) | payer MEDICARE, OTHER ==
[2017-03-30] MEDS ORDERED: Sodium Chloride 0.9% 10 ML Syringe FLUSH PRN (08:15)
[2017-03-30] MEDS ORDERED: Aspirin 81 MG Tab.Chew PO ONE (08:16)
[2017-03-30] MEDS ORDERED: HYDROmorphone 0.5 MG/0.5 ML Syringe IVPUSH ONE (08:17)
[2017-03-30] MEDS ORDERED: Ondansetron 4 MG/2 ML SDV IVPUSH ONE (08:17)
--- NOTE | 2017-03-30 08:20 | EDM.PDOC ---
ED HPI GENERAL MEDICAL PROBLEM - General Chief Complaint: Chest Pain Stated Complaint: CHEST PAIN Time Seen by Provider: 03/30/17 08:08 Source of Information: Reports: Patient, Family (spouse) History Limitations: Reports: No Limitations - History of Present Illness INITIAL COMMENTS - FREE TEXT/NARRATIVE: 81-year-old female presents to the ED with intermittent central chest pain seems to radiate through to her back in particular the nape of her neck. She appreciates that radiates down the posterior aspect of both arms at times as well. It seems to wax and wane in does seem to get worse with certain activities but not necessarily with exposure to cool air pushing a shopping cart etc. She's better if she holds still. I.e. this suggests a musculoskeletal component to her pain. She was admitted to dialysis this morning with reported chest pain in the center to the ED. She states the pain is been clinic, and one for better part of a week or more. She denies cough or sputum production. She no troubles with burping or belching. She does have GERD but is well controlled with omeprazole daily. Neck pain is worsened by movement of the neck from side to side. denies shortness of breath or orthopnea. She is listed as being on Plavix 75 mg a day and half and 162 mg per day. Onset: Unknown/Unsure (Pain submitted been kind of off and on for the last week to 10 days.) Onset Date: 03/20/17 Duration: Hour(s):, Intermittent, Waxing/Waning Location: Reports: Chest (Radiates to her back and up into the nape of her neck. Also radiates down the posterior aspect of both upper extremities.) Quality: Reports: Ache Severity: Moderate Improves with: Reports: Rest Worsens with: Reports: Movement Context: Denies: Activity, Exercise, Lifting, Sick Contact, Trauma, Other Associated Symptoms: Reports: Chest Pain. Denies: No Other Symptoms, Confusion , Cough, cough w sputum, Diaphoresis, Fever/Chills, Headaches, Loss of Appetite , Malaise, Nausea/Vomiting, Rash, Seizure, Shortness of Breath, Syncope, Weakness Treatments MOTOR AND CONTROLS TESTER: Reports: Other (see below) (None.) Mid-Sternal Chest Pain Score (Numeric/FACES): 5 - Related Data Allergies Allergy/AdvReac Type Severity Reaction Status Date / Time bandaids Allergy Rash Uncoded 03/30/17 08:01 metal Allergy Rash Uncoded 03/30/17 08:01 Home Meds: Home Meds Allopurinol [Zyloprim] 100 mg PO DAILY 08/15/13 [History] Aspirin [Halfprin] 81 mg PO DAILY 08/15/13 [History] Multivitamin [Multivitamins] 1 cap PO DAILY 08/15/13 [History] DULoxetine [Cymbalta] 30 mg PO DAILY 09/02/16 [History] Diltiazem HCl [Cardizem] 120 mg PO DAILY 09/02/16 [History] Clopidogrel [Plavix] 75 mg PO DAILY 10/14/16 [History] Gabapentin [Neurontin] 400 mg PO BID 10/14/16 [History] Omeprazole 10 mg PO DAILY 10/14/16 [History] atorvaSTATin [Lipitor] 10 mg PO DAILY 10/14/16 [History] Amitriptyline [Elavil] 10 mg PO DAILY 02/06/17 [History] Diazepam [Valium] 5 mg PO DAILY 02/06/17 [History] Metoprolol Tartrate 12.5 mg PO BID 02/06/17 [History] Vit A/Vit C/Vit E/Zinc/Copper [Preservision] 1 tab PO BID 02/06/17 [History] Past Medical History HEENT History: Reports: Cataract, Impaired Vision Cardiovascular History: Reports: CAD, Heart Failure, High Cholesterol, Hypertension, NV, Stents Respiratory History: Reports: PE Gastrointestinal History: Reports: GERD Genitourinary History: Reports: Chronic Renal Insuffiency, Dialysis Other Genitourinary History: cystoscopy, fistula placed, boderline renal failure. 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 OB/BYN History: uterine cancer Musculoskeletal History: Reports: Arthritis, Back Pain, Chronic, Gout, Other ( See Below) Other Musculoskeletal History: sciatic nerve Psychiatric History: Reports: Anxiety, Depression Endocrine/Metabolic History: Reports: Diabetes, Type II Hematologic History: Reports: Anemia Other Hematologic History: hyperkalemia, hyperphosphatemia, vitamin d deficiency Oncologic (Cancer) History: Reports: Uterine Dermatologic History: Reports: Other (See Below) Other Dermatologic History: neoplasm of skin - Past Surgical History HEENT Surgical History: Reports: Cataract Surgery Cardiovascular Surgical History: Reports: Coronary Artery Stent GI Surgical History: Reports: Cholecystectomy, Colonoscopy Female Surgical History: Reports: Hysterectomy, Salpingo-Oophorectomy Oncologic Surgical History: Reports: Other (See Below) Social & Family History - Family History Cardiac: Reports: NV - Tobacco Use Smoking Status *Q: Never Smoker Years of Tobacco use: 10 Packs/Tins Daily: 0.5 Used Tobacco, but Quit: Yes Month Tobacco Last Used: 50 Second Hand Smoke Exposure: No - Caffeine Use Caffeine Use: Reports: None Other Caffeine Use: fluid restriction 1 liter daily - Recreational Drug Use Recreational Drug Use: No - Living Situation & Occupation Living situation: Reports: , with Spouse Occupation: Retired ED ROS GENERAL - Review of Systems Review Of Systems: See Below Constitutional: Reports: Fatigue. Denies: Fever, Chills, Malaise, Weakness, Diaphoresis, Decreased Appetite (Chronically), Weight Loss HEENT: Reports: No Symptoms Respiratory: Reports: Shortness of Breath. Denies: Wheezing, Pleuritic Chest Pain (On exertion), Cough, Sputum, Hemoptysis, Other Cardiovascular: Reports: Chest Pain, Blood Pressure Problem (See history of present illness), Dyspnea on Exertion (Usually is mild edema in the lower extremities.), Edema. Denies: Claudication ( controlled with medication), Lightheadedness, Orthopnea, Palpitations Endocrine: Reports: Fatigue GI/Abdominal: Denies: Abdominal Pain, Anorexia, Black Stool, Bloody Stool, Constipation, Diarrhea, Decreased Appetite, Difficulty Swallowing, Distension, Flatus, Hematemesis, Hematochezia, Melena, Mucous in Stool, Nausea, Stool Incontinence, Vomiting : Reports: Other (Makes very little urine daily. Less than half a cup) Musculoskeletal: Reports: Neck Pain, Shoulder Pain, Back Pain Skin: Reports: No Symptoms Neurological: Reports: No Symptoms Psychiatric: Reports: No Symptoms Hematologic/Lymphatic: Reports: No Symptoms ED EXAM, GENERAL - Physical Exam Exam: See Below Exam Limited By: No Limitations General Appearance: Alert, WD/WN, No Apparent Distress Eye Exam: Bilateral Eye: Normal Inspection Throat/Mouth: Normal Inspection, Normal Lips, Normal Teeth, Normal Oropharynx Head: Atraumatic, Normocephalic Neck: Normal Inspection, Supple, Non-Tender, Full Range of Motion. No: Carotid Bruit, Lymphadenopathy (L), Lymphadenopathy (R), Thyromegaly Respiratory/Chest: No Respiratory Distress, Lungs Clear, Normal Breath Sounds, No Accessory Muscle Use, Chest Non-Tender. No: Rales, Rhonchi, Wheezing Cardiovascular: Regular Rate, Rhythm, No Edema, No Gallop, No JVD, No Murmur, No Rub. No: Normal Peripheral Pulses Peripheral Pulses: 1+: Posterior Tibial (L), Posterior Tibial (R), Dorsalis Pedis (L), Dorsalis Pedis (R) GI/Abdominal: Normal Bowel Sounds, Soft, Non-Tender, No Organomegaly, No Distention, No Abnormal Bruit, Other (Abdominal girth limits ability to palpate solid organs.) Back Exam: Normal Inspection, Full Range of Motion. No: CVA Tenderness (L), CVA Tenderness (R) Extremities: Normal Inspection, Normal Range of Motion, Non-Tender, Limited Range of Motion (Particularly of her knees which show evidence of varus arthritic changes.) Neurological: Alert, Oriented, CN II-XII Intact, Normal Cognition, Normal Gait, No Motor/Sensory Deficits Psychiatric: Normal Affect, Normal Mood Skin Exam: Warm, Dry, Intact, Normal Color, No Rash EKG INTERPRETATION EKG Date: 03/30/17 Time: 07:55 Rhythm: NSR Rate (Beats/Min): 77 [place]: LAD-Left [place] Deviation (-38) P-Wave: Present QRS: LBBB ST-T: Other (Diffuse early repolarization pattern. The skin was leads II, III, and F aVF to suggest possible ST segment elevation which in fact is fictitious. There are near Q waves in leads 3 and aVF. There are Q waves in leads V1 to be 4. Again left bundle branch block limits ability to interpret. ECG done 14 of October of this year showed sinus tachycardia at 10 3/m with evidence of an old anteroseptal infarct and Q waves in lead 3 and decreased voltage in the limb leads. There was evidence of left ventricular hypertrophy pattern. CT was prolonged at that time.) QT: Prolonged (Moderately prolonged at 440.) Course - Vital Signs Last Recorded V/S: Last Vital Signs Temp 36.3 C 03/30/17 07:57 Pulse 77 03/30/17 07:57 Resp 15 03/30/17 07:57 BP 137/59 L 03/30/17 07:57 Pulse Ox 96 03/30/17 07:57 - Orders/Labs/Meds Orders: Active Orders 24 hr Category Date Time Status EKG Documentation Completion [RC] STAT Care 03/30/17 08:15 Active Peripheral IV Care [RC] . DIRECTED Care 03/30/17 08:16 Active Heparin Sodium/D5W [Heparin 25,000 Units in D5W 500 ML] Med 03/30/17 10:00 Ordered 25,000 units in 500 ml IV ASDIRECTED Nitroglycerin/D5W [Nitroglycerin 25 MG/D5W 250 ML] Med 03/30/17 09:15 Active 25 mg in 250 ml IV TITRATE Sodium Chloride 0.9% [Saline Flush] Med 03/30/17 08:15 Active 10 ml FLUSH ASDIRECTED PRN Peripheral IV Insertion Adult [OM.PC] Stat Oth 03/30/17 08:16 Ordered Medication Orders Nitroglycerin/Dextrose (Nitroglycerin 25 Mg/D5w 250 Ml) 25 mg in 250 mls @ 6 mls/hr IV TITRATE SIN PRN Reason: 10 MCG/MIN Last Admin: 03/30/17 09:22 Dose: 10 mcg/min, 6 mls/hr Heparin Sodium/Dextrose (Heparin 25,000 Units In D5w 500 Ml) 25,000 units in 500 mls @ 20 mls/hr IV ASDIRECTED SIN PRN Reason: 1,000 UNITS/HR Sodium Chloride (Saline Flush) 10 ml FLUSH ASDIRECTED PRN PRN Reason: Keep Vein Open Last Admin: 03/30/17 08:29 Dose: 10 ml Labs: Laboratory Tests 03/30/17 03/30/17 03/30/17 Range/Units 08:05 08:05 08:05 WBC 8.41 (3.98-10.04) K/mm3 RBC 3.68 L (3.98-5.22) M/mm3 Hgb 11.3 (11.2-15.7) gm/L Hct 36.0 (34.1-44.9) % MCV 97.8 H (79.4-94.8) fl MCH 30.7 (25.6-32.2) pg MCHC 31.4 L (32.2-35.5) g/dl RDW Std Deviation 53.0 H (36.4-46.3) fL Plt Count 208 (182-369) K/mm3 MPV 9.8 (9.4-12.3) fl Neutrophils % (Manual) 82 H (40-60) % Band Neutrophils % 1 (0-10) % Lymphocytes % (Manual) 13 L (20-40) % Atypical Lymphs % 0 % Monocytes % (Manual) 1 L (2-10) % Eosinophils % (Manual) 3 (0.7-5.8) % Basophils % (Manual) 0 L (0.1-1.2) Platelet Estimate Adequate RBC Morph Comment Normal PT 11.4 (8.0-13.0) SECONDS INR 1.04 Sodium 134 L (136-145) mEq/L Potassium 4.4 (3.5-5.1) mEq/L Chloride 92 L (98-107) mEq/L Carbon Dioxide 24 (21-32) mEq/L Anion Gap 22.4 H (5-15) BUN 111 H (7-18) mg/dL Creatinine 7.4 H (0.55-1.02) mg/dL Est Cr Clr Drug Dosing 5.10 mL/min Estimated GFR (MDRD) 5 (>60) mL/min BUN/Creatinine Ratio 15.0 (14-18) Glucose 206 H (83-115) mg/dL Calcium 8.6 (8.5-10.1) mg/dL Magnesium (1.8-2.4) mg/dl Total Bilirubin 0.4 (0.2-1.0) mg/dL AST 23 (15-37) U/L ALT 23 (14-59) U/L Alkaline Phosphatase 160 H (46-116) U/L CK-MB (CK-2) 19.0 H (0-3.6) ng/ml Troponin I 1.399 H* (0.00-0.056) ng/mL C-Reactive Protein 4.0 H* (<1.0) mg/dL NT-Pro-B Natriuret Pep 3768 H (0-450) pg/mL Total Protein 8.0 (6.4-8.2) g/dl Albumin 3.5 (3.4-5.0) g/dl Globulin 4.5 gm/dL Albumin/Globulin Ratio 0.8 L (1-2) 14/17 Range/Units 08:05 WBC (3.98-10.04) K/mm3 RBC (3.98-5.22) M/mm3 Hgb (11.2-15.7) gm/L Hct (34.1-44.9) % MCV (79.4-94.8) fl MCH (25.6-32.2) pg MCHC (32.2-35.5) g/dl RDW Std Deviation (36.4-46.3) fL Plt Count (182-369) K/mm3 MPV (9.4-12.3) fl Neutrophils % (Manual) (40-60) % Band Neutrophils % (0-10) % Lymphocytes % (Manual) (20-40) % Atypical Lymphs % % Monocytes % (Manual) (2-10) % Eosinophils % (Manual) (0.7-5.8) % Basophils % (Manual) (0.1-1.2) Platelet Estimate RBC Morph Comment PT (8.0-13.0) SECONDS INR Sodium (136-145) mEq/L Potassium (3.5-5.1) mEq/L Chloride (98-107) mEq/L Carbon Dioxide (21-32) mEq/L Anion Gap (5-15) BUN (7-18) mg/dL Creatinine (0.55-1.02) mg/dL Est Cr Clr Drug Dosing mL/min Estimated GFR (MDRD) (>60) mL/min BUN/Creatinine Ratio (14-18) Glucose (83-115) mg/dL Calcium (8.5-10.1) mg/dL Magnesium 1.7 L (1.8-2.4) mg/dl Total Bilirubin (0.2-1.0) mg/dL AST (15-37) U/L ALT (14-59) U/L Alkaline Phosphatase (46-116) U/L CK-MB (CK-2) (0-3.6) ng/ml Troponin I (0.00-0.056) ng/mL C-Reactive Protein (<1.0) mg/dL NT-Pro-B Natriuret Pep (0-450) pg/mL Total Protein (6.4-8.2) g/dl Albumin (3.4-5.0) g/dl Globulin gm/dL Albumin/Globulin Ratio (1-2) Meds: Medications Generic Name Dose Route Start Last Admin Trade Name Freq PRN Reason Stop Dose Admin Nitroglycerin/Dextrose 25 mg in 250 mls @ 6 mls/hr 03/30/17 09:15 03/30/17 09 :22 Nitroglycerin 25 Mg/D5w 250 Ml IV 10 mcg/min TITRATE SIN 6 mls/hr 10 MCG/MIN Administration Heparin Sodium/Dextrose 25,000 units in 500 mls @ 20 mls/hr 03/30/17 10:00 Heparin 25,000 Units In D5w 500 Ml IV ASDIRECTED SIN 1,000 UNITS/HR Sodium Chloride 10 ml 03/30/17 08:15 03/30/17 08:29 Saline Flush FLUSH 10 ml ASDIRECTED PRN Administration Keep Vein Open Discontinued Medications Generic Name Dose Route Start Last Admin Trade Name Freq PRN Reason Stop Dose Admin Aspirin 324 mg 03/30/17 08:16 03/30/17 08:23 Aspirin PO 03/30/17 08:17 324 mg ONETIME ONE Administration Hydromorphone HCl 0.5 mg 03/30/17 08:17 03/30/17 08:26 Dilaudid IVPUSH 03/30/17 08:18 0.5 mg ONETIME ONE Administration Ondansetron HCl 4 mg 03/30/17 08:17 03/30/17 08:25 Zofran IVPUSH 03/30/17 08:18 4 mg ONETIME ONE Administration - Radiology Interpretation Free Text/Narrative:: 81-year-old female presents to the ED with central chest discomfort radiating through to her back in particular To the nape of her neck. Radiates down the posterior aspect of both shoulders and arms. It's better with rest and worse with exertion. It seems to be musculoskeletal in origin on exam however she does have a history of coronary disease with stent placement and is on Plavix and aspirin. She is also in dialysis. She complained of chest pain this morning and was sent to the ED for evaluation prior to dialysis. ECG is not useful in helping us determine if there is any acute ischemia as there is a left bundle branch block pattern with a diffuse early repolarization pattern skewing the the ST segments upwards. She was given 4 baby aspirins chewed. She will be given Dilaudid 0.5 mg IV with Zofran 4 mg IV for pain relief. One view chest x- ray and labs to be done to include cardiac markers. - Re-Assessments/Exams Free Text/Narrative Re-Assessment/Exam: 03/30/17 09:02Labs are back. Total white count is 8.41 with hemoglobin of 11.3 and hematocrit of 36.0. MCV is elevated at 97.8. Will count 208,000. Differential on the white count is 82% neutrophils and 1% band cells. PT is 11.4 INR is 1.04. Sodium slightly low at 134 potassium normal at 4.4. Chloride 92 bicarbonate 24 and a gap is 22.4 B1 is 111. Of course she is a dialysis patient. Creatinine is 7.4. Her GFR is only 5. Glucose elevated at 206. Calcium 8.6 bilirubin 0.4. AST 23 LT 23. Alk phosphatase mildly elevated 160. CK-MB fraction is 19.0 and troponin is 1.399 highly suggestive of recent myocardial infarction within the last 24 hours C-reactive protein is 4.0. BNP is pending. Chest x-ray reveals moderate cardiomegaly with a prominence of the right pulmonary arterial system and mild infiltrate around the hilar area on the right side. There is a mildly tortuous thoracic aorta as well. Stable nodule behind the left heart identified. 03/30/17 09:20: Discussed the findings of the positive enzymes with family members and since she had her last 4 stents placed in June of this year in [facility] she prefers to return to the hospital. I will therefore try to make arrangements to transfer her to that facility as she is going to need bedside dialysis today as well as a likely cardiac catheter. Pain is much better after the Dilaudid IV. I will now put of nitroglycerin at 10 mcg/m providing her blood pressure can withstand it. It is currently 112/97. 03/30/17 09:51 was able to speak with Dr. Kunz --front edger wind commissioning technician and he has advised that she be started on heparin. She will be given a bolus because she is on Plavix at this time. She'll be started on heparin 1000 units an hour. Spoke with Dr. Cox - front edger hospitalist and the patient will be admitted to her service. As discussed she will likely need bedside dialysis today. 03/30/17 10:01 BNP is elevated at 3768. His magnesium was low normal at 1.7. Departure - Departure Time of Disposition: 10:00 Disposition: DC/Tfer to Acute Hospital 02 Reason for Transfer *Q: Primary PCI Indicated Condition: Serious Clinical Impression: Hyponatremia Acute myocardial infarction Qualifiers: Myocardial infarction ST status: non-ST elevation myocardial infarction Qualified Code(s): I21.4 - Non-ST elevation (NSTEMI) myocardial infarction Renal failure Qualifiers: Renal failure chronicity: chronic Chronic kidney disease stage: on chronic dialysis Qualified Code(s): N18.6 - End stage renal disease Referrals: Dimas John MD [Primary Care Provider] - Forms: ED Department Discharge Additional Instructions: Patient transferred to [facility] for cardiology and nephrology consultation and management. Diagnosis is acute myocardial infarction with change and ECG to a new onset left bundle branch block with elevated cardiac markers. - My Orders Last 24 Hours: My Active Orders 03/30/17 08:15 EKG Documentation Completion [RC] STAT Sodium Chloride 0.9% [Saline Flush] 10 ml FLUSH ASDIRECTED PRN 03/30/17 08:16 Peripheral IV Care [RC] . DIRECTED Peripheral IV Insertion Adult [OM.PC] Stat 03/30/17 09:15 Nitroglycerin/D5W [Nitroglycerin 25 MG/D5W 250 ML] 25 mg in 250 ml IV TITRATE 03/30/17 10:00 Heparin Sodium/D5W [Heparin 25,000 Units in D5W 500 ML] 25,000 units in 500 ml IV ASDIRECTED - Assessment/Plan Last 24 Hours: My Active Orders 03/30/17 08:15 EKG Documentation Completion [RC] STAT Sodium Chloride 0.9% [Saline Flush] 10 ml FLUSH ASDIRECTED PRN 03/30/17 08:16 Peripheral IV Care [RC] . DIRECTED Peripheral IV Insertion Adult [OM.PC] Stat 03/30/17 09:15 Nitroglycerin/D5W [Nitroglycerin 25 MG/D5W 250 ML] 25 mg in 250 ml IV TITRATE 03/30/17 10:00 Heparin Sodium/D5W [Heparin 25,000 Units in D5W 500 ML] 25,000 units in 500 ml IV ASDIRECTED
--- NOTE | 2017-03-30 09:08 | CR ---
Chest: Frontal view of the chest was obtained utilizing portable technique. Comparison: Prior chest x-ray of 07/08/16. Heart is enlarged. Mild tortuosity of the thoracic aorta is seen. Minimal scarring is noted within the left base. Lungs otherwise are clear. Bony structures are grossly intact. Previous study showed a nodule behind the left heart which is not as well-seen on current exam but felt to be without definite change. Impression: 1. Stable nodule behind the left heart. 2. Cardiomegaly and other incidental findings. Nothing acute is appreciated. Diagnostic code #3
[2017-03-30] MEDS ORDERED: Nitroglycerin/D5W 25 MG/250 ML BOTTLE IV SCH (09:15)
[2017-03-30] MEDS ORDERED: Heparin Sodium/D5W 25,000 UNITS/500 ML BAG IV SCH (10:00)
[2017-03-30 11:19] VITALS: BP 129/80
== END 2017-03-30 10:37 ==
LOC: JD.ED 07:49
DX: I21.4 Non-ST elevation (NSTEMI) myocardial infarction (principal); E87.1 Hypo-osmolality and hyponatremia; E11.22 Type 2 diabetes mellitus with diabetic chronic kidney disease; I12.0 Hypertensive chronic kidney disease with stage 5 chronic kidney disease or end stage renal disease; N18.6 End stage renal disease; Z79.82 Long term (current) use of aspirin; Z79.899 Other long term (current) drug therapy
CPT/HCPCS: 36415; 71010; 80053; 82553; 83735; 83880; 84484; 85025; 85610; 86140; 93005; 96365; 96368; 96374; 96375; 99285; A9270; J1170; J1644; J2405; J7050; 93010

== ENCOUNTER 2017-04-17 17:31 | Emergency (ER) | payer MEDICARE, OTHER ==
[~2017-04-17 17:31] MED LIST: Amiodarone 150 MG/3 ML SDV ONE; Calcium Chloride 10% 1 GM/10 ML Syringe ONE; EPINEPHrine 1:10,000 1 MG/10 ML Syringe ONE; Sodium Bicarbonate 8.4% 50 MEQ/50 ML Syringe ONE; Sodium Chloride 0.9% 10 ML Syringe ONE
[2017-04-17] MEDS ORDERED: Magnesium Sulfate/Water 100 ML IV ONE (17:32)
--- NOTE | 2017-04-17 19:06 | EDM.PDOC ---
ED HPI GENERAL MEDICAL PROBLEM - General Chief Complaint: CPR in Progress Stated Complaint: SYNCOPE Time Seen by Provider: 04/17/17 17:31 Source of Information: Reports: Family History Limitations: Reports: Altered Mental Status - History of Present Illness INITIAL COMMENTS - FREE TEXT/NARRATIVE: The patient presents apneic and pulseless in her vehicle. She went out to eat with her and after they were driving around looking at [place] lights. She said she was very lightheaded and she passed out. Her drove her right to the ER. He came and got help and we went out to find the patient pulseless and apneic. We removed her from the passenger side with some difficulty. When we got her on the cot, we immediately started CPR. Her says she has a bad heart and kidneys. She has renal failure and she is on dialysis. She went to dialysis today and felt fine after. She was recently seen in [place] and she had a heart cath. They told her that the stents were fine but some vessels further down were blocked. There was no stenting they could do for her. She also had CHF. She had no fever or cough according to her . She had no chest pain. She was short of breath. She had oxygen with her. Onset: Sudden Duration: Minutes: Severity: Severe Improves with: Reports: None Worsens with: Reports: None Associated Symptoms: Reports: No Other Symptoms - Related Data Allergies Allergy/AdvReac Type Severity Reaction Status Date / Time bandaids Allergy Rash Uncoded 03/30/17 08:01 metal Allergy Rash Uncoded 03/30/17 08:01 Home Meds: Home Meds Allopurinol [Zyloprim] 100 mg PO DAILY 08/15/13 [History] Aspirin [Halfprin] 81 mg PO DAILY 08/15/13 [History] Multivitamin [Multivitamins] 1 cap PO DAILY 08/15/13 [History] DULoxetine [Cymbalta] 30 mg PO DAILY 09/02/16 [History] Diltiazem HCl [Cardizem] 120 mg PO DAILY 09/02/16 [History] Clopidogrel [Plavix] 75 mg PO DAILY 10/14/16 [History] Gabapentin [Neurontin] 400 mg PO BID 10/14/16 [History] Omeprazole 10 mg PO DAILY 10/14/16 [History] atorvaSTATin [Lipitor] 10 mg PO DAILY 10/14/16 [History] Amitriptyline [Elavil] 10 mg PO DAILY 02/06/17 [History] Diazepam [Valium] 5 mg PO DAILY 02/06/17 [History] Metoprolol Tartrate 12.5 mg PO BID 02/06/17 [History] Vit A/Vit C/Vit E/Zinc/Copper [Preservision] 1 tab PO BID 02/06/17 [History] Past Medical History HEENT History: Reports: Cataract, Impaired Vision Cardiovascular History: Reports: CAD, Heart Failure, High Cholesterol, Hypertension, [place], Stents Respiratory History: Reports: PE Gastrointestinal History: Reports: GERD Genitourinary History: Reports: Chronic Renal Insuffiency, Dialysis Other Genitourinary History: cystoscopy, fistula placed, boderline renal failure. 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: Other OB/BYN History: uterine cancer Musculoskeletal History: Reports: Arthritis, Back Pain, Chronic, Gout, Other ( See Below) Other Musculoskeletal History: sciatic nerve Psychiatric History: Reports: Anxiety, Depression Endocrine/Metabolic History: Reports: Diabetes, Type II Hematologic History: Reports: Anemia Other Hematologic History: hyperkalemia, hyperphosphatemia, vitamin d deficiency Oncologic (Cancer) History: Reports: Uterine Dermatologic History: Reports: Other (See Below) Other Dermatologic History: neoplasm of skin - Past Surgical History HEENT Surgical History: Reports: Cataract Surgery Cardiovascular Surgical History: Reports: Coronary Artery Stent GI Surgical History: Reports: Cholecystectomy, Colonoscopy Female Surgical History: Reports: Hysterectomy, Salpingo-Oophorectomy Oncologic Surgical History: Reports: Other (See Below) Social & Family History - Family History Cardiac: Reports: AL - Tobacco Use Smoking Status *Q: Never Smoker Years of Tobacco use: 10 Packs/Tins Daily: 0.5 Used Tobacco, but Quit: Yes Month Tobacco Last Used: 50 Second Hand Smoke Exposure: No - Caffeine Use Caffeine Use: Reports: None Other Caffeine Use: fluid restriction 1 liter daily - Recreational Drug Use Recreational Drug Use: No - Living Situation & Occupation Living situation: Reports: , with Spouse Occupation: Retired ED ROS GENERAL - Review of Systems Review Of Systems: Unable To Obtain ED EXAM, CPR - Physical Exam Exam: See Below Limited By: Unresponsive General Appearance: Obtunded Ears: Normal External Exam Nose: Normal Inspection Throat/Mouth: Normal Inspection Head: Atraumatic, Normocephalic Respiratory Chest: Other ( Apnea, equal lung sound with ventilation. ET tube in good position.) Cardiovascular: Pulse with Compression, CPR In Progress, Other (Pulseless) GI/Abdominal Exam: Distended ED CPR PROCEDURES - Endotracheal Intubation Time of Intubation: 17:45 ET Intubation Indication: Respiratory Failure Preparation: Suction, Balloon Tested, BVM Set Up, Difficult Airway Equip Pre-Oxygenation: Assisted with BVM, 100% FiO2 Placement: Orotracheal, Cuffed, Uncomplicated Placement Cords Visualized: Yes, Grade 1 ETT Size In mm: 7.5 Number of Attempts: 1 Confirmed By: CO2 Indicator, Bilateral Breath Sounds Tube Secured By: By RT Course - Re-Assessments/Exams Free Text/Narrative Re-Assessment/Exam: 04/17/17 19:18 CPR was initiated right when we got the patient on the cot. We ventilated to patient with a BVM while we were getting our airway equipment ready. The patient was in V-fib. I shocked at 150joules. A line was started by my nurse IO in the right anterior tibia. Another line was started later. The Lionel chest compression device was set up and it took over compressions. We did multiple doses of epinephrine. I also ordered amiodarone 300mg IV, sodium bicarb and calcium gluconate. I intubated the patient without difficulty. We also tried magnesium. We were unable to get a pulse back. I talked to her and updated him on our efforts. I asked if he wanted to come back and see her and he did not want to at that time. He did want us to stop our efforts. The patient was pronounced at 1754. I called our manager social media Dr Hackett and he released the body. I went out and talked with her and family again. Critical care time was 30 minutes to include taking care of the patient, talking with family, charting and talking with Dr Hackett. This excludes procedure time. Departure - Departure Time of Disposition: 17:54 Disposition: 20 Preliminary Cause of *Q: Cardiac Arrest Clinical Impression: Cardiac arrest, Respiratory arrest, CHF, Congestive heart failure, Chronic renal insufficiency, stage IV (severe) - Discharge Information Referrals: Dimas John MD [Primary Care Provider] - Forms: ED Department Discharge
== END 2017-04-17 20:17 | disposition expired ==
LOC: JD.ED 17:31
DX: I46.9 Cardiac arrest, cause unspecified (principal); I13.0 Hypertensive heart and chronic kidney disease with heart failure and stage 1 through stage 4 chronic kidney disease, or unspecified chronic kidney disease; I50.9 Heart failure, unspecified; E11.22 Type 2 diabetes mellitus with diabetic chronic kidney disease; N18.4 Chronic kidney disease, stage 4 (severe); Z79.82 Long term (current) use of aspirin; Z79.899 Other long term (current) drug therapy
CPT/HCPCS: 31500; 92950; 96374; 96375; 99291; J0171; J0282; J3475; J7050